=== PATIENT | male | born 1965 | race American Indian/Alaskan Native ===

== ENCOUNTER 2021-03-09 22:02 | Emergency (ER) | payer SELFPAY ==
[2021-03-09 22:31] VITALS: BP 157/101
--- NOTE | 2021-03-09 22:40 | Emergency Department Report ---
ED General Adult HPI - General Chief complaint: Extremity Injury, Lower Stated complaint: L FOOT PAIN Time Seen by Provider: 03/09/21 22:31 Source: patient Mode of arrival: Ambulatory Limitations: No Limitations - History of Present Illness Initial comments: 35-year-old -[place] male diabetic [place] emerge department planing of pain to the left lateral foot which he thinks is ambulating around his hepatotoxins and a known growth which he has been trying to treat by shaving down himself but the area is growing more tender presents emerge department seeking further relation treatment options. No fever, chills, sweats. No chest pain palpitation no nausea vomiting - Related Data Previous Rx's Medication Instructions Recorded Last Taken Type Ketorolac [Toradol] 10 mg PO Q6H PRN #14 tablet 03/09/21 Unknown Rx ED Review of Systems ROS: Stated complaint: L FOOT PAIN Other details as noted in HPI ED Past Medical Hx - Past Medical History Previous Medical History?: No - Surgical History Past Surgical History?: No - Medications Home Medications: Home Medications Medication Instructions Recorded Confirmed Last Taken Type Ketorolac [Toradol] 10 mg PO Q6H PRN #14 tablet 03/09/21 Unknown Rx ED Physical Exam - General Limitations: No Limitations ED Course Vital Signs 03/09/21 22:28 Temperature 98.6 F Pulse Rate 77 Respiratory 15 Rate Blood Pressure 157/101 [Left] O2 Sat by Pulse 99 Oximetry Critical care attestation.: If time is entered above; I have spent that time in minutes in the direct care of this critically ill patient, excluding procedure time. ED Disposition Clinical Impression: Foot pain, Plantar wart Disposition: 01 HOME / SELF CARE / HOMELESS Is pt being admited?: No Does the pt Need Aspirin: No Condition: Stable Instructions: How to Use Cold Therapy, [id number], Heel Pad Atrophy, Plantar Warts, Foot Pain Additional Instructions: Seen emergency department for foot pain found to have a plantar wart in the region please refrain from self treating by shaving as you were in the past there is increased chance of infection be sure to follow-up with podiatry for definitive treatment. In the meantime refrain from keeping feet wet and moist during the day and make sure that feet remain as clean as possible. Utilize some of the prescriptions provided for ended in the any discomfort to able to follow-up for the appropriate Prescriptions: Ketorolac [Toradol] 10 mg PO Q6H PRN #14 tablet PRN Reason: Pain [facility] [Provider [facility]] - 3-5 Days [facility] [Provider Group] - 3-5 Days Forms: Work/School Release Form(ED)
== END 2021-03-09 22:40 | disposition home or self-care (01) ==
LOC: ED 22:02
DX: B07.0 Plantar wart (principal); M79.672 Pain in left foot
CPT/HCPCS: 99282

== ENCOUNTER 2021-07-01 07:41 | Emergency (ER) | payer OTHER ==
[2021-07-01 08:06] VITALS: BP 114/69
--- NOTE | 2021-07-01 08:40 | Emergency Department Report ---
ED Recheck HPI - General Chief Complaint: Medical Clearance Stated Complaint: OUT OF INSULIN/HIGH GLUCOSE Time Seen by Provider: 07/01/21 08:37 Source: patient Mode of arrival: Ambulatory Limitations: No Limitations - History of Present Illness Initial Comments: 56-year-old black male with a past medical history of diabetes presents to the emergency department requesting medication refill. He states that he uses Lantus pens nightly for diabetes but ran out of the pen 2 to 3 days ago. He states that he usually gets his medications from the [place] by mail but was notified they will would be a few more days maybe over a week before the refill, exam, so he was sent here for refill. Patient denies any other complaints of at this time. MD Complaint: medication refill request Returns Today for: request for prescription Context: ran out of medication Associated Symptoms: none - Related Data Previous Rx's Medication Instructions Recorded Last Taken Type Ketorolac [Toradol] 10 mg PO Q6H PRN #14 tablet 03/09/21 Unknown Rx Insulin Glargine,Hum.rec.anlog 15 unit SQ QPM #1 pack 07/01/21 Unknown Rx [Lantus Solostar] Allergies Allergy/AdvReac Type Severity Reaction Status Date / Time No Known Allergies Allergy Verified 03/09/21 22:55 ED Review of Systems ROS: Stated complaint: OUT OF INSULIN/HIGH GLUCOSE Other details as noted in HPI Comment: All other systems reviewed and negative Constitutional: denies: chills, fever Eyes: denies: vision change Respiratory: denies: cough, shortness of breath, SOB with exertion, SOB at rest Cardiovascular: denies: chest pain, palpitations Gastrointestinal: denies: abdominal pain, nausea, vomiting Genitourinary: denies: urgency, dysuria, frequency, hematuria, discharge Musculoskeletal: denies: back pain Neurological: denies: numbness, paresthesias, abnormal gait, vertigo ED Past Medical Hx - Medications Home Medications: Home Medications Medication Instructions Recorded Confirmed Last Taken Type Ketorolac [Toradol] 10 mg PO Q6H PRN #14 tablet 03/09/21 Unknown Rx Insulin Glargine,Hum.rec.anlog 15 unit SQ QPM #1 pack 07/01/21 Unknown Rx [Lantus Solostar] ED Physical Exam - General Limitations: No Limitations General appearance: alert, in no apparent distress - Head Head exam: Present: atraumatic, normocephalic - Eye Eye exam: Present: normal appearance. Absent: conjunctival injection - Neck Neck exam: Present: normal inspection - Respiratory Respiratory exam: Present: normal lung sounds bilaterally. Absent: respiratory distress, wheezes, rales, rhonchi, stridor, chest wall tenderness - Cardiovascular Cardiovascular Exam: Present: regular rate, normal heart sounds - GI/Abdominal GI/Abdominal exam: Present: soft, normal bowel sounds. Absent: distended, tenderness, rebound, rigid - Extremities Exam Extremities exam: Present: normal inspection - Back Exam Back exam: Present: normal inspection - Neurological Exam Neurological exam: Present: alert, oriented X3, normal gait - Psychiatric Psychiatric exam: Present: normal affect, normal mood - Skin Skin exam: Present: warm, dry, intact, normal color ED Course Vital Signs 07/01/21 08:05 Temperature 97.8 F Pulse Rate 76 Respiratory 18 Rate Blood Pressure 114/69 [Right] O2 Sat by Pulse 99 Oximetry ED Recheck MDM - Differential Diagnosis Prescription Refill(s) - Medical Decision Making 56-year-old black male with a past medical history of diabetes presents to the emergency department requesting medication refill. He states that he uses Lantus pens nightly for diabetes but ran out of the pen 2 to 3 days ago. He s tates that he [facility] but was notified they will would be a few more days maybe over a week before the refill, exam, so he was sent here for refill. Patient denies any other complaints of at this time. Patient without any complaints of at this time. 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 He is advised to follow-up with endocrinology as needed and return to the emergency department as needed. He verbalized understanding of and agreement with plan of care. Critical care attestation.: If time is entered above; I have spent that time in minutes in the direct care of this critically ill patient, excluding procedure time. ED Disposition Clinical Impression: Medication refill Disposition: HOME / SELF CARE / HOMELESS Is pt being admited?: No Does the pt Need Aspirin: No Condition: Stable Instructions: Insulin Glargine injection Additional Instructions: Take medication as prescribed. Follow-up with primary care provider. Prescriptions: Insulin Glargine,Hum.rec.anlog [Lantus Solostar] 15 unit SQ QPM #1 pack Referrals: [facility] [Other] - 3-5 Days Forms: Work/School Release Form(ED) Time of Disposition: 08:40
== END 2021-07-01 08:51 | disposition home or self-care (01) ==
LOC: ED 07:41
DX: E11.9 Type 2 diabetes mellitus without complications (principal); Z76.0 Encounter for issue of repeat prescription
CPT/HCPCS: 82962; 99282